=== PATIENT | female | born 1995 ===

== ENCOUNTER 2023-03-08 14:39 | Outpatient (REF) | payer OTHER, SELFPAY ==
[2023-03-08 16:45] LABS: Hematocrit 41.2 % (37.0-47.0); Hemoglobin 13.8 g/dl (12.0-16.0); Mean Corpuscular HGB Conc 33.5 g/dl (31.0-35.0); Mean Corpuscular Hemoglobin 28.8 pg (27.0-33.0); Mean Corpuscular Volume 85.8 fL (80.0-98.0); Mean Platelet Volume 11.1 fL (9.4-12.3); Platelet Count 358 X10*3/uL (160-400); Red Cell Distribution Width 11.5 % (11.0-16.0); White Blood Count 5.8 X10*3/uL (4.8-10.8)
[2023-03-08 17:31] LABS: Alanine Aminotransferase 14 U/L (0-31); Albumin Level 4.6 g/dL (3.5-5.0); Alkaline Phosphatase 45 U/L (39-117); Aspartate Amino Transferase 15 U/L (5-31); Bilirubin Direct 0.5 mg/dL (0.0-0.5); Bilirubin Total 1.2 mg/dL (0.0-1.0); Lipase 18 U/L (8-78); Total Protein 7.5 g/dL (6.5-8.0)
[2023-03-08 17:34] LABS: TSH reflex Free T4 1.35 uIU/mL (0.32-4.0)
== END 2023-03-08 14:40 | disposition home or self-care (01) ==
LOC: HO.LAB 14:39
PROVIDERS: Visit Provider Nurse Practitioner Family
DX: R10.9 Unspecified abdominal pain (principal); K21.9 Gastro-esophageal reflux disease without esophagitis; K59.00 Constipation, unspecified; K62.5 Hemorrhage of anus and rectum; K59.04 Chronic idiopathic constipation; K58.2 Mixed irritable bowel syndrome; K52.9 Noninfective gastroenteritis and colitis, unspecified; R14.0 Abdominal distension (gaseous)
CPT/HCPCS: 36415; 80076; 83690; 84443; 85027

== ENCOUNTER 2023-03-08 14:40 | Outpatient (AMB) | payer OTHER, SELFPAY ==
--- NOTE | 2023-03-08 14:43 | A.OFFVIS_ITS ---
Intake Vital Signs 03/08/23 14:45 Height 5 ft 1 in Weight 172 lb 6.424 oz BMI 32.6 BP 105/71 Blood Pressure Location Lt brachial Position Sitting Pulse 75 Intake Visit Reasons: Abdominal Pains, Rectal Bleeding Intake Note: Geovanna presents in office as a new.patient for abdominal pain , rectal bleeding. PT CC: pt reports having abdominal pain , rectal bleeding , bloating , constipation /diarrhea , heartburn , nausea, loss of appetite pt denies any other GI issues Marketing Intern Required: No Accompanied by: Self / Same As Patient Allergies No Known Allergies Allergy (Verified 03/08/23 14:45) HPI Abdominal Pains, Rectal Bleeding HPI Details 27-year-old female with past medical his tory of anxiety and depression is here today for initial consultation. Patient was sent to us by her PCP. Patient reported having occasional blood in the stool when wiping after bowel movement. Patient denies actual hematochezia or melena. Denies unintentional weight loss or ribbon like stools. Patient had few episodes back in November. Her blood work was normal. Normal H&H. Patient had abdominal CT scan that showed no colitis, diverticulitis or diverticulosis. Uterine fibroids and ovarian cysts noted. Patient reports to have postprandial loose stools then constipation for few days. Patient reports that her bowels are irregular. Patient also reports dyspepsia postprandially no matter what she eats. Patient feels discouraged and does not have much appetite because of that. Patient denies any nausea or vomiting. Reports dyspepsia without dysphagia or odynophagia. Patient reports postprandial abdominal bloating PFSH Surgical History (Updated 03/08/23 @ 14:50 by Isauro Mariee) Hx of removal of ovary Hx of ovarian cyst Family History (Updated 03/08/23 @ 14:48 by Isauro Mariee) Mother Cervical cancer Diabetes Father HTN (hypertension) Heart disease Stroke Social History (Updated 03/08/23 @ 14:47 by Isauro Mariee) Household Members: Other Alcohol intake: never Patient Tobacco Use Status: Never used Tobacco Review of Systems Const Denies weight gain and Denies weight loss ENT Reports no additional complaints, Denies dysphagia and Denies odynophagia Card Reports no additional complaints Resp Reports no additional complaints GI Reports abdominal pain, Denies belching, Denies melena, Reports bloating, Reports hematochezia (Occasional), Denies change in bowel habits, Reports constipation, Denies dysphagia, Denies excessive flatus, Reports dyspepsia, Reports heartburn, Denies diarrhea, Reports loose stools, Denies nausea, Denies odynophagia and Denies vomiting Reports no additional complaints Musc Reports no additional complaints Neuro Reports no additional complaints Psych Reports no additional complaints Endo Reports no additional complaints Physical Exam Vital Signs: Last Vital Signs Pulse 75 03/08/23 14:45 BP 105/71 03/08/23 14:45 BMI result Body Mass Index 32.6 Const General: healthy appearing, no acute distress and well developed Nutritional Appearance: obese Orientation/consciousness: patient oriented x3 HEENT Head: Yes normal to inspection, Yes normocephalic and Yes atraumatic Face and sinus: Yes normal facial exam Mouth: Normal oral and palatal mucosa present Throat: Yes posterior oropharynx normal, Yes tonsils normal and Yes uvula midline Eyes General: appearance normal, both eyes and all related structures Neck Neck: Yes normal visual inspection, Yes full ROM and Yes trachea midline Thyroid: Thyroid normal Resp Effort & Inspection: normal respiratory effort, able to speak in complete sentences, no tracheal deviation and symmetric chest movement Auscultation: clear to auscultation bilaterally Cardio Rate: regular rate Heart sounds: S1 normal heart sound present and S2 normal heart sound present GI Inspection: Yes normal to inspection, No distended and Yes obesity Palpation (GI): Soft to palpation, not firm, nontender and No hepatosplenomegaly present Auscultation: normal bowel sounds General: Yes no CVA tenderness Back/Spine/Pelvis Back: no CVA tenderness Skin General skin exam: elasticity normal, turgor normal and dry skin Neuro General: patient oriented x3 Psych Appearance: grossly normal Mental Status: mental status grossly normal Speech and movement: Normal speech and movement present Assessment & Plan Assessment & Plan (1) GERD (gastroesophageal reflux disease): Code(s): K21.9 - Gastro-esophageal reflux disease without esophagitis Qualifiers: Esophagitis presence: esophagitis presence not specified Qualified Code(s): K21.9 - Gastro-esophageal reflux disease without esophagitis (2) Rectal bleed: Code(s): K62.5 - Hemorrhage of anus and rectum (3) Chronic idiopathic constipation: Code(s): K59.04 - Chronic idiopathic constipation (4) IBS (irritable bowel syndrome): Code(s): K58.9 - Irritable bowel syndrome without diarrhea Qualifiers: Irritable bowel syndrome type: with both diarrhea and constipation Qualified Code(s): K58.2 - Mixed irritable bowel syndrome (5) Postprandial diarrhea: Code(s): K52.9 - Noninfective gastroenteritis and colitis, unspecified (6) Postprandial abdominal bloating: Code(s): R14.0 - Abdominal distension (gaseous) Plan Patient reports few episodes of rectal bleed. Patient describes seeing blood after bowel movement when wiping and sometimes in her stool. Normal H&H back in November. Will repeat CBC today. Patient is constipated will have her start taking senna. Patient however does report postprandial loose stools will have her start taking Citrucel to help her bulk stools. Will check thyroid study. Will check H pylori and will treat empirically if positive. Patient will be started on pantoprazole every morning half an hour before breakfast. Patient encouraged to avoid dietary triggers and late night snacking. Staying upright for minimum 3 hours after meals discussed with patient. Patient will follow-up in our office in 6 weeks, sooner on as needed basis. If patient continues with symptoms will send her for upper endoscopy. If patient will continue to have blood in her stools and abdominal discomfort will send her for colonoscopy. Patient is agreeable to this plan and verbalizes understanding of instructions. She was given the opportunity to ask questions and all questions answered. Thank you for allowing me to participate in her care Orders: Orders Lipase 03/08/23 R10.9 - Unspecified abdominal pain Complete Blood Count no Diff 03/08/23 K21.9 - Gastro-esophageal reflux disease without esophagitis TSH reflex Free T4 03/08/23 K59.00 - Constipation, unspecified Liver Panel 03/08/23 R10.9 - Unspecified abdominal pain H Pylori Breath Test 03/08/23 Medications: New methylcellulose (laxative) (Citrucel) 500 mg PO DAILY 30 tabs 2RF K59.00 - Constipation, unspecified sennosides (Natural Senna Laxative) 17.2 mg (2 x 8.6 mg) PO BEDTIME 180 tabs 3RF constipation K59.00 - Constipation, unspecified pantoprazole take one tablet half an hour before breakfast 40 mg PO DAILY 30 tabs 2RF K21.9 - Gastro-esophageal reflux disease without esophagitis Coding Level of Care Code New Pt Level 4 (96420) Diagnoses Gastroesophageal reflux disease, unspecified whether esophagitis present K21.9 Esophagitis presence: esophagitis presence not specified Rectal bleed K62.5 Chronic idiopathic constipation K59.04 Irritable bowel syndrome with both constipation and diarrhea K58.2 Irritable bowel syndrome type: with both diarrhea and constipation Postprandial diarrhea K52.9 Postprandial abdominal bloating R14.0 Time Spent (min) 45 Comment 30 minutes spent with patient and additional 15 minutes spent reviewing her records
[2023-03-08 14:45] VITALS: BP 105/71; PULSE 75; BMI 32.6
== END 2023-03-08 15:27 | disposition home or self-care (01) ==
PROVIDERS: Visit Provider Nurse Practitioner Family
DX: K21.9 Gastro-esophageal reflux disease without esophagitis (principal); K62.5 Hemorrhage of anus and rectum; K58.2 Mixed irritable bowel syndrome; R14.0 Abdominal distension (gaseous)
CPT/HCPCS: 99204

== ENCOUNTER 2023-03-08 15:49 | Outpatient (REF) | payer OTHER, SELFPAY ==
[2023-03-11 14:24] LABS: H Pylori Breath Test Negative (Negative)
== END 2023-03-08 15:50 | disposition home or self-care (01) ==
LOC: HO.LNP 15:49
PROVIDERS: Visit Provider Nurse Practitioner Family
DX: K59.00 Constipation, unspecified (principal); R10.9 Unspecified abdominal pain; K21.9 Gastro-esophageal reflux disease without esophagitis; Z11.0 Encounter for screening for intestinal infectious diseases
CPT/HCPCS: 83013

== ENCOUNTER 2023-04-22 15:06 | Outpatient (AMB) | payer OTHER, SELFPAY ==
--- NOTE | 2023-04-22 15:08 | A.OFFVIS_ITS ---
Intake Vital Signs 04/22/23 15:12 Height 5 ft 1 in Weight 167 lb 8.821 oz BMI 31.7 BP 121/72 Blood Pressure Location Lt brachial Position Sitting Pulse 83 Intake Visit Reasons: 6 week follow up Intake Note: Geovanna presents in the office as a 6 week follow up. CC: She states that she is still having issues with her stomach and she does not know the results - she was unable to make a log in into the portal. Allergies No Known Allergies Allergy (Verified 04/22/23 15:14) HPI 6 week follow up HPI Details LAST VISIT: GERD (gastroesophageal reflux disease) Rectal bleed Chronic idiopathic constipation IBS (irritable bowel syndrome) Postprandial diarrhea Postprandial abdominal bloating Plan Patient reports few episodes of rectal bleed. Patient describes seeing blood after bowel movement when wiping and sometimes in her stool. Normal H&H back in November. Will repeat CBC today. Patient is constipated will have her start taking senna. Patient however does report postprandial loose stools will have her start taking Citrucel to help her bulk stools. Will check thyroid study. Will check H pylori and will treat empirically if positive. Patient will be started on pantoprazole every morning half an hour before breakfast. Patient encouraged to avoid dietary triggers and late night snacking. Staying upright for minimum 3 hours after meals discussed with patient. Patient will follow-up in our office in 6 weeks, sooner on as needed basis. If patient continues with symptoms will send her for upper endoscopy. If patient will continue to have blood in her stools and abdominal discomfort will send her for colonoscopy. Patient is agreeable to this plan and verbalizes understanding of instructions. She was given the opportunity to ask questions and all questions answered. ? Thank you for allowing me to participate in her care Orders Orders Lipase 03/08/23 R10.9 Complete Blood Count no Diff 03/08/23 K21.9 TSH reflex Free T4 03/08/23 K59.00 Liver Panel 03/08/23 R10.9 H Pylori Breath Test 03/08/23 Medications New methylcellulose (laxative) (Citrucel) 500 mg PO DAILY 30 tabs 2RF K59.00 sennosides (Natural Senna Laxative) 17.2 mg (2 x 8.6 mg) PO BEDTIME 180 tabs 3RF constipation K59.00 pantoprazole take one tablet half an hour before breakfast 40 mg PO DAILY 30 tabs 2RF K21.9 TODAY'S VISIT Patient is here today for follow-up and to discuss lab results. Patient reports that she has been feeling little better, however she still has postprandial loose stools, does not feel like she empties completely. Take Citrucel in the morning and senna night time. Patient reports that pantoprazole has been working and she has decrease in acid reflux symptoms. However reports occasional dyspepsia without dysphagia or odynophagia. Patient had normal lab results. Patient is unable to get in to her portal to view her labs. Will have staff help her get in to her account. Patient denies any nausea or vomiting. Reports postprandial abdominal bloating. Denies melena, hematochezia, unintentional weight loss or ribbon like stools. PFSH Surgical History Hx of removal of ovary Hx of ovarian cyst Family History Mother Cervical cancer Diabetes Father HTN (hypertension) Heart disease Stroke Household Members: Other Alcohol intake: never Patient Tobacco Use Status: Never used Tobacco Review of Systems Const Denies weight gain and Denies weight loss ENT Reports no additional complaints, Denies dysphagia and Denies odynophagia Card Reports no additional complaints Resp Reports no additional complaints GI Denies abdominal pain, Denies belching, Denies melena, Reports bloating, Denies change in bowel habits, Reports constipation, Denies dysphagia, Denies excessive flatus, Denies dyspepsia, Reports heartburn (Occasional), Denies diarrhea, Denies loose stools, Denies nausea, Denies odynophagia and Denies vomiting Reports no additional complaints Musc Reports no additional complaints Neuro Reports no additional complaints Psych Reports no additional complaints Endo Reports no additional complaints Physical Exam Vital Signs: Last Vital Signs Pulse 83 04/22/23 15:12 BP 121/72 04/22/23 15:12 BMI result Body Mass Index 31.7 Const General: healthy appearing, no acute distress and well developed Nutritional Appearance: obese Orientation/consciousness: patient oriented x3 HEENT Head: Yes normal to inspection, Yes normocephalic and Yes atraumatic Face and sinus: Yes normal facial exam Mouth: Normal oral and palatal mucosa present Throat: Yes posterior oropharynx normal, Yes tonsils normal and Yes uvula midline Eyes General: appearance normal, both eyes and all related structures Neck Neck: Yes normal visual inspection, Yes full ROM and Yes trachea midline Thyroid: Thyroid normal Resp Effort & Inspection: normal respiratory effort, able to speak in complete sentences, no tracheal deviation and symmetric chest movement Auscultation: clear to auscultation bilaterally Cardio Rate: regular rate Heart sounds: S1 normal heart sound present and S2 normal heart sound present GI Inspection: Yes normal to inspection, No distended and Yes obesity Palpation (GI): Soft to palpation, not firm, nontender and No hepatosplenomegaly present Auscultation: normal bowel sounds General: Yes no CVA tenderness Back/Spine/Pelvis Back: no CVA tenderness Skin General skin exam: elasticity normal, turgor normal and dry skin Neuro General: patient oriented x3 Psych Appearance: grossly normal Mental Status: mental status grossly normal Affect: normal affect Results Reviewed Results Reviewed: Laboratory Tests 03/08/23 03/08/23 15:41 16:01 Hgb 13.8 Hct 41.2 MCV 85.8 Total Bilirubin 1.2 H Direct Bilirubin 0.5 AST 15 ALT 14 Lipase 18 TSH 1.35 H. pylori Breath Test Negative Assessment & Plan Assessment & Plan (1) GERD (gastroesophageal reflux disease): Code(s): K21.9 - Gastro-esophageal reflux disease without esophagitis Qualifiers: Esophagitis presence: esophagitis presence not specified Qualified Code(s): K21.9 - Gastro-esophageal reflux disease without esophagitis (2) Rectal bleed: Code(s): K62.5 - Hemorrhage of anus and rectum (3) Chronic idiopathic constipation: Code(s): K59.04 - Chronic idiopathic constipation (4) IBS (irritable bowel syndrome): Code(s): K58.9 - Irritable bowel syndrome without diarrhea Qualifiers: Irritable bowel syndrome type: with constipation Qualified Code(s): K58.1 - Irritable bowel syndrome with constipation (5) Postprandial diarrhea: Code(s): K52.9 - Noninfective gastroenteritis and colitis, unspecified (6) Postprandial abdominal bloating: Code(s): R14.0 - Abdominal distension (gaseous) Plan Patient can continue taking Citrucel daily. She will start taking Dulcolax tablets in the evening. Patient was encouraged to increase fluid intake and activity to promote better bowel motility. Discussed with patient avoiding dietary triggers and late night snacking. Staying upright for minimum 3 hours after meals discussed with patient. Low FODMAP diet discussed with patient. Continue pantoprazole daily. All lab work discussed with patient today. Normal values. Patient will be sent for upper endoscopy to further evaluate for eso phagitis, gastritis, with night this, H pylori. H pylori breath test was negative. Patient is agreeable to this plan and verbalizes understanding of instructions. She was given the opportunity to ask questions and all questions answered. Thank you for allowing me to participate in her care Medications: New bisacodyl (Dulcolax (bisacodyl)) 10 mg (2 x 5 mg) PO BEDTIME 180 tabs 4RF Discontinued sennosides Discontinued Reason: Doctor's Order 17.2 mg (2 x 8.6 mg) PO BEDTIME 180 tabs 3RF constipation K59.00 - Constipation, unspecified Coding Level of Care Code Est Pt Level 4 (46095) Diagnoses Gastroesophageal reflux disease, unspecified whether esophagitis present K21.9 Esophagitis presence: esophagitis presence not specified Rectal bleed K62.5 Chronic idiopathic constipation K59.04 Irritable bowel syndrome with constipation K58.1 Irritable bowel syndrome type: with constipation Postprandial diarrhea K52.9 Postprandial abdominal bloating R14.0 Time Spent (min) 35 Comment 25 minutes spent with patient and additional 10 minutes spent reviewing her records
[2023-04-22 15:12] VITALS: BP 121/72; PULSE 83; BMI 31.7
== END 2023-04-22 15:49 | disposition home or self-care (01) ==
PROVIDERS: Visit Provider Nurse Practitioner Family
DX: K21.9 Gastro-esophageal reflux disease without esophagitis (principal); K62.5 Hemorrhage of anus and rectum; K58.2 Mixed irritable bowel syndrome; R14.0 Abdominal distension (gaseous)
CPT/HCPCS: 99214

== ENCOUNTER → 2023-04-22 15:06 | Outpatient (BNVA) | payer OTHER, SELFPAY | PROVIDERS: Visit Provider Nurse Practitioner Family | DX: K21.9 Gastro-esophageal reflux disease without esophagitis (principal); K62.5 Hemorrhage of anus and rectum; K59.04 Chronic idiopathic constipation; K58.1 Irritable bowel syndrome with constipation; R14.0 Abdominal distension (gaseous); Z79.899 Other long term (current) drug therapy | CPT/HCPCS: 99212 ==

== ENCOUNTER 2023-05-20 13:01 | Outpatient (AMB) | payer OTHER, SELFPAY ==
[2023-05-20 13:05] VITALS: BP 114/60; PULSE 95; O2SAT 91; BMI 32.4
--- NOTE | 2023-05-20 13:05 | MHC.PC.OV ---
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 Accompanied by: Self / Same As Patient Allergies No Known Allergies Allergy (Verified 05/20/23 13:22) Medication List - Last Reconciled 05/20/23 by ARTHUR Ayala albuterol sulfate 90 mcg/actuation (Ventolin HFA) inhalation bisacodyl (Dulcolax (bisacodyl)) 10 mg (2 x 5 mg) PO BEDTIME clonidine HCl 0.1 mg PO BID fluoxetine 60 mg PO QAM lorazepam 0.5 mg PO TID PRN methylcellulose (laxative) (Citrucel) 500 mg PO DAILY mirtazapine 30 mg PO BEDTIME pantoprazole 40 mg PO DAILY Tobacco use date assessed: 05/20/23 Dental Screening Dental Screen Date: 05/20/23 Did you have a dental visit in the last 12 months?: Yes Did you have a dental problem in the last 6 months where you did not have access to dental care?: No Was dental information given to patient?: Patient has dentist HPI HPI Comments History of Present Illness Details 27-year-old female past medical history significant for chronic idiopathic constipation, IBS, GERD, anxiety, depression. Patient reports had upper respiratory infection a few months ago and was started on albuterol for possible asthma. Patient states was seen and emergency room and was told she had a pleurisy. Patient reports she continues to have ongoing shortness of breath and occasional wheezing. Did she use her rescue inhaler multiple times per day. Denies any night awakenings due to shortness of breath and wheezing. Refill sent on albuterol. Will proceed with chest x-ray and PFTs to further evaluate. O2 saturation recheck during appointment 100% on room air. Patient currently following with psychiatrist Melissa Echeverria. Patient also reports she has ongoing all over muscle pains throughout whole body labs ordered to further evaluate for possible autoimmune problem. 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 [facility] Medical History (Updated 05/20/23 @ 13:36 by ARTHUR Ayala) Myalgia Surgical History Hx of removal of ovary Hx of ovarian cyst Family History Mother Cervical cancer Diabetes Father HTN (hypertension) Heart disease Stroke Social History Household Members: Other Housing: Apartment Alcohol intake: never Patient Tobacco Use Status: Never used Tobacco e-Cigarette/Vaping Use: Never Used service: No Current occupational status: disabled Cognitive needs: No Hearing needs: No Vision needs: No Questionnaire PHQ-9 Over the last 2 weeks, how often have you been bothered by any of the following problems? 1. Little interest or pleasure in doing things: nearly every day 2. Feeling down, depressed, or hopeless: more than half the days 3. Trouble falling or staying asleep, or sleeping too much: nearly every day 4. Feeling tired or having little energy: nearly every day 5. Poor appetite or overeating: nearly every day 6. Feeling bad about yourself - or that you are a failure or have let yourself or your family down: several days 7. Trouble concentrating on things, such as reading the newspaper or watching television: more than half the days 8. Moving or speaking so slowly that other people could have noticed. Or the opposite - being so fidgety or restless that you have been moving around a lot more than usual: nearly every day 9. Thoughts that you would be better off or of hurting yourself in some way: not at all Total score: 20 Depression Screening Interpretation: Positive Depression Screening Follow-up: In treatment Depression Screening Done: Yes 60869 - PHQ-9 Billing: Yes Source: Developed by Drs. Edgard Cote, Jacklyn Garay, Chin Sims and colleagues, with an educational josh from [employer]. Thrive Questionnaire Date Thrive assessed: 05/20/23 I am a: Patient What is your living situation today?: I have a steady place to live Within the past 12 months, did the food you bought not last and you didn't have the money to get more?: Never true Within the past 12 months, did you worry whether your food would run out before you got money to buy more?: Never true Do you have trouble paying for medicines?: No Do you have trouble getting transportation to medical appointments?: No Do you have trouble paying your heating and electricity bill?: No Do you have trouble taking care of your child, family member or friend?: No Do you have trouble with day-to-day activities such as bathing, preparing meals, shopping, managing finances, etc.?: No Are you currently unemployed and looking for a job?: No Are you interested in more education?: No Please select the resources that you would like help with: None Currently or been in a relationship where the following occur: no concerns reported AUDIT C Alcohol Use Questionnaire (AUDIT-C) 1. How often do you have a drink containing alcohol?: Never 3. How often do you have six or more drinks on one occasion?: Never Total Score: 0 RACH-7 AMB Questionnaire RACH-7 Date RACH - 7 assessed: 05/20/23 Feeling nervous, anxious, or on edge: 3 = Nearly every day Not being able to stop or control worryin = Nearly every day Worrying too much about different things: 2 = More than half the days Trouble relaxin = More than half the days Being so restless that it is hard to sit still: 1 = Several days Becoming easily annoyed or irritable: 2 = More than half the days Feeling afraid as if something awful might happen: 3 = Nearly every day Total RACH-7 score (0-4 normal; 5-9 mild; 10-14 moderate; 15-21 severe): 16 Source: Developed by Drs. Edgard Cote, Jacklyn Garay, Chin Sims and colleagues, with an educational josh from [employer]. RACH-7 Assessment Billing RACH-7 Assessment Tool: RACH-7 Assessment 80216 Review of Systems Const Denies chills, Denies fatigue, Denies fever(s) and Denies poor appetite Eyes Denies no additional complaints ENT Reports Normal hearing present Card Denies chest pain, Denies syncope, Denies rapid heart rate and Denies dyspnea Resp Denies cough and Denies dyspnea GI Denies change in stool character, Denies constipation, Denies diarrhea, Denies nausea and Denies vomiting Denies urinary frequency, Denies dysuria and Denies urinary urgency Neuro Reports Normal hearing present, Denies confusion and Denies syncope Psych Denies confusion Endo Denies fatigue Physical exam (Primary Care) Vital Signs: Last Vital Signs Pulse 95 05/20/23 13:05 BP 114/60 05/20/23 13:05 Pulse Ox 91 L 05/20/23 13:05 Oxygen Delivery Method Room Air 05/20/23 13:05 BMI result Body Mass Index 32.4 Tobacco/Smoking Status: Tobacco use Status Tobacco use date assessed 05/20/23 05/20/23 13:16 Patient Tobacco Use Status Never used Tobacco 05/20/23 13:16 e-Cigarette/Vaping Use Never Used 05/20/23 13:16 PHQ-9: PHQ-9 Score PHQ-9: Total score 20 05/21/23 09:54 Depression Screening Interpretation: Positive Depression Screening Follow-up: In treatment Thrive Assessment: Date of Thrive Assessment Date Thrive assessed 05/20/23 05/20/23 13:16 Currently or been in a relationship where the following occur: no concerns reported Const General: No confusion Orientation/consciousness: No confusion HENMT Head: Yes normocephalic and Yes atraumatic Eyes Conjunctivae: conjunctivae normal Chest Chest palpation & inspection: normal inspection of the chest Resp Effort & Inspection: normal respiratory effort Auscultation: clear to auscultation bilaterally, no crackles, no rhonchi and no wheezes Cardio Rate: regular rate Rhythm: regular rhythm Heart sounds: S1 normal heart sound present and S2 normal heart sound present Peripheral pulses: dorsalis pedis present GI Inspection: Yes normal to inspection General: Yes no CVA tenderness Back/Spine/Pelvis Back: no CVA tenderness Neuro General: No confusion Cranial nerves: Yes Normal hearing present Extrem General: No edema Assessment and Plan Assessment & Plan (1) Myalgia: Code(s): M79.10 - Myalgia, unspecified site Plan: CRP, ESR, JOY and rheumatoid factor ordered given patient experiencing ongoing all over muscle pains. If unremarkable will refer to Rheumatology for further evaluation. (2) Shortness of breath: Code(s): R06.02 - Shortness of breath Plan: Chest x-ray ordered. Use albuterol as needed for shortness of breath and wheezing. (3) Pleurisy: Code(s): R09.1 - Pleurisy Plan: Chest x-ray ordered. Orders: Orders Comprehensive Met. Panel 05/20/23 Z13.1 - Encounter for screening for diabetes mellitus Lipid Panel 05/20/23 Z13.220 - Encounter for screening for lipoid disorders Vitamin D 25-OH Total 05/20/23 Z13.21 - Encounter for screening for nutritional disorder Erythrocyte Sedimentation Rate 05/20/23 M79.10 - Myalgia, unspecified site C Reactive Protein 05/20/23 M79.10 - Myalgia, unspecified site PFT pulmonary function test 05/20/23 J45.909 - Unspecified asthma, uncomplicated Complete Blood Count Auto Diff 05/20/23 Z13.0 - Encounter for screening for diseases of the blood and blood-forming organs and certain disorders involving the immune mechanism TSH reflex Free T4 05/20/23 Z13.29 - Encounter for screening for other suspected endocrine disorder JOY Reflex Titer and Pattern 05/20/23 M79.10 - Myalgia, unspecified site Rheumatoid Factor 05/20/23 J45.909 - Unspecified asthma, uncomplicated CT NG by PCR 05/20/23 Z11.8 - Encounter for screening for other infectious and parasitic diseases XR chest 2V 05/20/23 R06.02 - Shortness of breath, R09.1 - Pleurisy Referrals HOUSE PLAYER Referral Z12.4 - Encounter for screening for malignant neoplasm of cervix Medications: New prednisone 40 mg (2 x 20 mg) PO DAILY 10 tabs 0RF J45.909 - Unspecified asthma, uncomplicated Changed From albuterol sulfate 90 mcg/actuation (Ventolin HFA) inhalation J45.909 - Unspecified asthma, uncomplicated To albuterol sulfate 90 mcg/actuation (Ventolin HFA) 2 puffs inhalation Q4-6H 6.7 grams 0RF J45.909 - Unspecified asthma, uncomplicated Coding Level of Care Code New Pt Level 3 (43082) Diagnoses Myalgia M79.10 Shortness of breath R06.02 Pleurisy R09.1 Additional Codes RACH-7 Assessment Billing - RACH-7 Assessment Tool: RACH-7 Assessment [id number] ([id number])
== END 2023-05-20 13:46 | disposition home or self-care (01) ==
PROVIDERS: Visit Provider Nurse Practitioner Family
DX: M79.10 Myalgia, unspecified site (principal); R06.02 Shortness of breath; R09.1 Pleurisy
CPT/HCPCS: 99203

== ENCOUNTER 2023-05-20 13:52 | Outpatient (REF) | payer OTHER, SELFPAY ==
--- NOTE | ~2023-05-20 | XR_ITS ---
EXAMINATION: XR CHEST CLINICAL INFORMATION: Shortness of breath. COMPARISON: None available. TECHNIQUE: 2 views of the chest were obtained. FINDINGS: Normal appearance of the cardiomediastinal silhouette. No focal airspace opacities, pleural effusion or pneumothorax. No pulmonary edema. No acute osseous findings. Visualized upper abdomen is within normal limits. XR/XR chest 2V IMPRESSION: No acute cardiopulmonary findings.
== END 2023-05-20 13:53 | disposition home or self-care (01) ==
LOC: HO.XRAY 13:52
PROVIDERS: PCP Nurse Practitioner Family; Visit Provider Nurse Practitioner Family
DX: R06.02 Shortness of breath (principal); R09.1 Pleurisy
CPT/HCPCS: 71046

== ENCOUNTER 2023-12-22 10:08 | Outpatient (AMB) | payer OTHER, SELFPAY ==
--- NOTE | 2023-12-22 10:31 | MHC.PC.OV ---
Vital Signs 12/22/23 10:34 Height 5 ft 1 in Weight 168 lb 2 oz BMI 31.8 BP 130/80 Blood Pressure Location Lt brachial Position Sitting Pulse 72 Pulse Source Pulse Oximeter Pulse Oximetry (%) 99 Oxygen Delivery Method Room Air Intake Visit Reasons: PE Intake Note: Patient is here today for a physical and TOM from [facility]. Requesting for Fibromyalgia test and Rheumatology referral. Per pt she had a fall months ago, sprain her right ankle but it has not healed yet. Complaint of low blood sugar at times. Dog Walker Required: No Piece Dye Worker: Present Accompanied by: Sister Allergies No Known Allergies Allergy (Verified 12/22/23 10:34) Tobacco use date assessed: 12/22/23 Dental Screening Dental Screen Date: 12/22/23 Did you have a dental visit in the last 12 months?: Yes Did you have a dental problem in the last 6 months where you did not have access to dental care?: No Was dental information given to patient?: Patient has dentist HPI PE HPI Details 28-year-old female presents to the office for an annual physical. She is accompanied by her sister. I will be assuming her care as her current provider has left the practice. Patient reports that she has nonspecific muscle aches and would like to see a behavioral health care manager. She believes she has fibromyalgia. She has history of depression for which she is disabled and is taking medications. Reports nonspecific pain in her various joints. Occasional morning stiffness. REPLACED BY [facility] Medical History Anxiety Depression IBS (irritable bowel syndrome) Pleurisy Asthma Myalgia Surgical History Hx of removal of ovary Hx of ovarian cyst Family History Mother Cervical cancer Diabetes Father HTN (hypertension) Heart disease Stroke Social History Household Members: Other Housing: Apartment Alcohol intake: never Patient Tobacco Use Status: Never used Tobacco e-Cigarette/Vaping Use: Never Used Second Hand Smoke Exposure: No service: No Current occupational status: disabled Cognitive needs: No Hearing needs: No Vision needs: No Questionnaire PHQ-9 Over the last 2 weeks, how often have you been bothered by any of the following problems? 1. Little interest or pleasure in doing things: several days (has therapy) 2. Feeling down, depressed, or hopeless: several days 3. Trouble falling or staying asleep, or sleeping too much: nearly every day 4. Feeling tired or having little energy: nearly every day 5. Poor appetite or overeating: several days 6. Feeling bad about yourself - or that you are a failure or have let yourself or your family down: more than half the days 7. Trouble concentrating on things, such as reading the newspaper or watching television: nearly every day 8. Moving or speaking so slowly that other people could have noticed. Or the opposite - being so fidgety or restless that you have been moving around a lot more than usual: several days 9. Thoughts that you would be better off or of hurting yourself in some way: not at all Total score: 15 Depression Screening Interpretation: Positive Depression Screening Follow-up: Existing condition and In treatment Depression Screening Done: Yes Source: Developed by Drs. Edgard Cote, Jacklyn Garay, Chin Sims and colleagues, with an educational josh from [employer]. Thrive Questionnaire Date Thrive assessed: 12/22/23 I am a: Patient What is your living situation today?: I have a steady place to live Within the past 12 months, did the food you bought not last and you didn't have the money to get more?: Never true Within the past 12 months, did you worry whether your food would run out before you got money to buy more?: Never true Do you have trouble paying for medicines?: No Do you have trouble getting transportation to medical appointments?: No Do you have trouble paying your heating and electricity bill?: No Do you have trouble taking care of your child, family member or friend?: No Do you have trouble with day-to-day activities such as bathing, preparing meals, shopping, managing finances, etc.?: No Are you currently unemployed and looking for a job?: No Are you interested in more education?: No Currently or been in a relationship where the following occur: No concerns reported THRIVE Score: 0 AUDIT C Alcohol Use Questionnaire (AUDIT-C) 1. How often do you have a drink containing alcohol?: Never Total Score: 0 RACH-7 AMB Questionnaire RACH-7 Date RACH - 7 assessed: 12/22/23 Feeling nervous, anxious, or on edge: 3 = Nearly every day (Has Therapy ) Not being able to stop or control worryin = Several days Worrying too much about different things: 1 = Several days Trouble relaxin = More than half the days Being so restless that it is hard to sit still: 2 = More than half the days Becoming easily annoyed or irritable: 1 = Several days Feeling afraid as if something awful might happen: 3 = Nearly every day Total RACH-7 score (0-4 normal; 5-9 mild; 10-14 moderate; 15-21 severe): 13 Source: Developed by Drs. Edgard Cote, Jacklyn Garay, Chin Sims and colleagues, with an educational josh from [employer]. Physical exam (Primary Care) Vital Signs: Last Vital Signs Pulse 72 12/22/23 10:34 BP 130/80 12/22/23 10:34 Pulse Ox 99 12/22/23 10:34 Oxygen Delivery Method Room Air 12/22/23 10:34 BMI result Body Mass Index 31.8 BMI Assessment/Plan discussion: High (1 lb per week weight loss suggested.) BMI High, discussed plan: lifestyle, weight reduction and dietary Tobacco/Smoking Status: Tobacco use Status Tobacco use date assessed 12/22/23 12/22/23 10:38 Patient Tobacco Use Status Never used Tobacco 12/22/23 10:38 e-Cigarette/Vaping Use Never Used 12/22/23 10:38 PHQ-9: PHQ-9 Score PHQ-9: Total score 15 12/22/23 10:47 Depression Screening Interpretation: Positive Depression Screening Follow-up: Existing condition and In treatment Thrive Assessment: Date of Thrive Assessment Date Thrive assessed 12/22/23 12/22/23 10:38 Currently or been in a relationship where the following occur: No concerns reported Const General: cooperative and healthy appearing Nutritional Appearance: well nourished Orientation/consciousness: patient oriented x3 Limitations: no limitations HENMT Head: Yes normal to inspection Eyes General: appearance normal, both eyes and all related structures Neck Neck: Yes normal visual inspection Chest Chest palpation & inspection: normal palpation of entire chest wall Resp Effort & Inspection: normal respiratory effort Neuro General: patient oriented x3 Assessment and Plan Assessment & Plan (1) Depression: Code(s): F32.A - Depression, unspecified Plan: Patient sees a psychiatrist and a therapist. She has on a regimen of medications. Continue current medications. (2) Anxiety: Code(s): F41.9 - Anxiety disorder, unspecified Plan: As above. (3) Irritable bowel syndrome: Code(s): K58.9 - Irritable bowel syndrome without diarrhea Plan: Patient is using MiraLax and other stool softeners for constipation. This regimen can be continued. (4) Myalgia: Code(s): M79.10 - Myalgia, unspecified site Plan: Rheumatology appointment has been requested. Blood work has been ordered. (5) Annual physical exam: Code(s): Z00.00 - Encounter for general adult medical examination without abnormal findings Orders: Orders Basic Metabolic Panel 12/22/23 F32.A - Depression, unspecified, F41.9 - Anxiety disorder, unspecified, K58.9 - Irritable bowel syndrome without diarrhea, M79.10 - Myalgia, unspecified site, Z11.3 - Encounter for screening for infections with a predominantly sexual mode of transmission Lipid Panel 12/22/23 F32.A - Depression, unspecified, F41.9 - Anxiety disorder, unspecified, K58.9 - Irritable bowel syndrome without diarrhea, M79.10 - Myalgia, unspecified site, Z11.3 - Encounter for screening for infections with a predominantly sexual mode of transmission Liver Panel 12/22/23 F32.A - Depression, unspecified, F41.9 - Anxiety disorder, unspecified, K58.9 - Irritable bowel syndrome without diarrhea, M79.10 - Myalgia, unspecified site, Z11.3 - Encounter for screening for infections with a predominantly sexual mode of transmission Thyroid Stimulating Hormone 12/22/23 F32.A - Depression, unspecified, F41.9 - Anxiety disorder, unspecified, K58.9 - Irritable bowel syndrome without diarrhea, M79.10 - Myalgia, unspecified site, Z11.3 - Encounter for screening for infections with a predominantly sexual mode of transmission HIV Ab/Ag 12/22/23 F32.A - Depression, unspecified, F41.9 - Anxiety disorder, unspecified, K58.9 - Irritable bowel syndrome without diarrhea, M79.10 - Myalgia, unspecified site, Z11.3 - Encounter for screening for infections with a predominantly sexual mode of transmission Syphilis Screen 12/22/23 F32.A - Depression, unspecified, F41.9 - Anxiety disorder, unspecified, K58.9 - Irritable bowel syndrome without diarrhea, M79.10 - Myalgia, unspecified site, Z11.3 - Encounter for screening for infections with a predominantly sexual mode of transmission Complete Blood Count no Diff 12/22/23 F32.A - Depression, unspecified, F41.9 - Anxiety disorder, unspecified, K58.9 - Irritable bowel syndrome without diarrhea, M79.10 - Myalgia, unspecified site, Z11.3 - Encounter for screening for infections with a predominantly sexual mode of transmission UA and rflx microscopic 12/22/23 F32.A - Depression, unspecified, F41.9 - Anxiety disorder, unspecified, K58.9 - Irritable bowel syndrome without diarrhea, M79.10 - Myalgia, unspecified site, Z11.3 - Encounter for screening for infections with a predominantly sexual mode of transmission CT NG by PCR 12/22/23 F32.A - Depression, unspecified, F41.9 - Anxiety disorder, unspecified, K58.9 - Irritable bowel syndrome without diarrhea, M79.10 - Myalgia, unspecified site, Z11.3 - Encounter for screening for infections with a predominantly sexual mode of transmission Erythrocyte Sedimentation Rate 12/22/23 F32.A - Depression, unspecified, F41.9 - Anxiety disorder, unspecified, K58.9 - Irritable bowel syndrome without diarrhea, M79.10 - Myalgia, unspecified site, Z11.3 - Encounter for screening for infections with a predominantly sexual mode of transmission Medications: Discontinued prednisone Discontinued Reason: Doctor's Order 40 mg (2 x 20 mg) PO DAILY 10 tabs 0RF J45.909 - Unspecified asthma, uncomplicated Coding Level of Care Code Est Pt Prev Care 18-39y(14346) Diagnoses Depression F32.A Anxiety F41.9 Irritable bowel syndrome K58.9 Myalgia M79.10 Annual physical exam Z00.00
[2023-12-22 10:34] VITALS: BP 130/80; PULSE 72; O2SAT 99; BMI 31.8
== END 2023-12-22 11:26 | disposition home or self-care (01) ==
PROVIDERS: PCP Nurse Practitioner Family; Visit Provider Internal Medicine
DX: F32.A Depression, unspecified (principal); F41.9 Anxiety disorder, unspecified; K58.9 Irritable bowel syndrome, unspecified; M79.10 Myalgia, unspecified site; Z00.00 Encounter for general adult medical examination without abnormal findings
CPT/HCPCS: 99395

== ENCOUNTER 2023-12-22 11:40 | Outpatient (REF) | payer OTHER, SELFPAY | END 2023-12-22 11:41 | disposition home or self-care (01) | LOC: HO.LAB 11:40 | PROVIDERS: PCP Internal Medicine; Visit Provider Internal Medicine | DX: Z13.89 Encounter for screening for other disorder (principal) ==

== ENCOUNTER 2023-12-27 14:21 | Outpatient (REF) | payer OTHER, SELFPAY ==
[2023-12-27 15:42] LABS: Hematocrit 37.1 % (37.0-47.0); Hemoglobin 12.6 g/dl (12.0-16.0); Mean Corpuscular Hemoglobin 29.2 pg (27.0-33.0); Mean Corpuscular Volume 85.9 fL (80.0-98.0); Mean Platelet Volume 11.2 fL (9.4-12.3); Platelet Count 289 X10*3/uL (160-400); Red Blood Count 4.32 X10*6/uL (4.20-5.50); Red Cell Distribution Width 11.9 % (11.0-16.0); White Blood Count 4.9 X10*3/uL (4.8-10.8)
[2023-12-27 16:00] LABS: Appearance Urine Clear; Color Urine Yellow; Glucose Urine UA Negative (Negative); Leukocyte Esterase Urine Moderate (2+) (Negative); Nitrite Urine Negative (Negative); PH 7.5 (5.0-9.0); Specific Gravity - Urine <= 1.005 (1.005-1.025); UMIC TRIGGER UA YES; Urine Blood Trace (Negative); Urine Ketones Negative (Negative); Urine Protein Negative (Neg-Trace)
[2023-12-27 16:14] LABS: Alanine Aminotransferase 13 U/L (0-31); Albumin Level 4.3 g/dL (3.5-5.0); Alkaline Phosphatase 46 U/L (39-117); Anion Gap 10 (12-20); Aspartate Amino Transferase 14 U/L (5-31); Bilirubin Direct 0.5 mg/dL (0.0-0.5); Bilirubin Total 1.6 mg/dL (0.0-1.0); Blood Urea Nitrogen 6 mg/dL (9-16); Calcium 9.8 mg/dL (8.4-10.2); Carbon Dioxide 26 mmol/L (22-29); Chloride 107 mmol/L (96-108); Cholesterol 125 mg/dL (<200); Estimated Glomerular Filt Rate > 60; Glucose Random 77 mg/dL (60-115); HDL Cholesterol 59 mg/dL (>40); LDL Cholesterol Calculated 56 mg/dL (<100); Potassium 3.8 mmol/L (3.3-5.1); Sodium 139 mmol/L (135-145); Total Protein 6.9 g/dL (6.5-8.0); Triglycerides 51 mg/dL (<150)
[2023-12-27 16:18] LABS: Bacteria Urine None Seen (None Seen); Hyaline Casts Urine 0-2 /LPF (0-2); RBC Urine 0-2 /HPF (0-2); WBC Urine 0-5 /HPF (0-5)
[2023-12-27 16:22] LABS: Thyroid Stimulating Hormone 1.51 uIU/mL (0.32-4.0)
[2023-12-27 16:25] LABS: Erythrocyte Sedimentation Rate 7 MM/HR (0-20)
[2023-12-28 08:44] LABS: HIV AB/AG Nonreactive (Nonreactive); HIV Num 1 0.05 S/CO (0.00-0.99)
[2023-12-28 08:47] LABS: Syphilis Screen Nonreactive (Nonreactive)
== END 2023-12-27 14:22 | disposition home or self-care (01) ==
LOC: HO.LAB 14:21
PROVIDERS: PCP Internal Medicine; Visit Provider Internal Medicine
DX: F32.A Depression, unspecified (principal); K58.9 Irritable bowel syndrome, unspecified; M79.10 Myalgia, unspecified site; F41.9 Anxiety disorder, unspecified; Z11.3 Encounter for screening for infections with a predominantly sexual mode of transmission
CPT/HCPCS: 36415; 80048; 80061; 80076; 81001; 81003; 84443; 85027; 85652; 86780; 87389

== ENCOUNTER 2024-01-05 10:43 | Outpatient (AMB) | payer OTHER, SELFPAY ==
--- NOTE | 2024-01-05 10:45 | A.OFFPC_ITS ---
Vital Signs 01/05/24 10:47 Height 5 ft 1 in Weight 167 lb 8 oz BMI 31.6 BP 110/70 Blood Pressure Location Rt brachial Position Sitting Pulse 75 Pulse Source Pulse Oximeter Pulse Oximetry (%) 99 Oxygen Delivery Method Room Air Intake Visit Reasons: LUNG PAIN/BACK Intake Note: Patient is here to follow up on Chest pain, Back pain, lot phemy. Requesting for referral to supervisor pole yard and Rheumatology (prefer [facility]). Car Sales Associate Required: No Scouring Machine Tender: Present Accompanied by: Sister Allergies No Known Allergies Allergy (Verified 01/05/24 11:40) Medication List - Last Reconciled 01/05/24 by Ventura Zuleta MD albuterol sulfate 90 mcg/actuation (Ventolin HFA) 2 puffs inhalation Q4-6H azithromycin (Zithromax) take 500 mg today (day 1), then 250 mg for 4 days (days 2-5) PO bisacodyl (Dulcolax (bisacodyl)) 10 mg (2 x 5 mg) PO BEDTIME clonidine HCl 0.1 mg PO BID cyclobenzaprine 10 mg PO BEDTIME fluoxetine 60 mg PO QAM lorazepam 0.5 mg PO TID PRN methylcellulose (laxative) (Citrucel) 500 mg PO DAILY mirtazapine 30 mg PO BEDTIME pantoprazole 40 mg PO DAILY Tobacco use date assessed: 01/05/24 Dental Screening Dental Screen Date: 12/22/23 HPI LUNG PAIN/BACK HPI Details 28-year-old female presents to the [facility] for a sick visit. Patient is reporting pain in her upper back and neck area for the past week. Along with running nose, sinus congestion and postnasal drip. She is bringing up yellow sputum. [facility] Medical History Anxiety Depression IBS (irritable bowel syndrome) Pleurisy Asthma Myalgia Surgical History Hx of removal of ovary Hx of ovarian cyst Family History Mother Cervical cancer Diabetes Father HTN (hypertension) Heart disease Stroke Social History Household Members: Other Housing: Apartment Alcohol intake: never Patient Tobacco Use Status: Never used Tobacco e-Cigarette/Vaping Use: Never Used Second Hand Smoke Exposure: No service: No Current occupational status: disabled Cognitive needs: No Hearing needs: No Vision needs: No Questionnaire Thrive Questionnaire Date Thrive assessed: 12/22/23 RACH-7 AMB Questionnaire RACH-7 Date RACH - 7 assessed: 12/22/23 Source: Developed by Drs. Edgard Cote, Jacklyn Garay, Chin Sims and colleagues, with an educational josh from [employer]. Physical exam (Primary Care) Vital Signs: Last Vital Signs Pulse 75 01/05/24 10:47 BP 110/70 01/05/24 10:47 Pulse Ox 99 01/05/24 10:47 Oxygen Delivery Method Room Air 01/05/24 10:47 BMI result Body Mass Index 31.6 Tobacco/Smoking Status: Tobacco use Status Tobacco use date assessed 01/05/24 01/05/24 10:48 Patient Tobacco Use Status Never used Tobacco 01/05/24 10:48 e-Cigarette/Vaping Use Never Used 01/05/24 10:48 Thrive Assessment: Date of Thrive Assessment Date Thrive assessed 12/22/23 01/05/24 10:48 Const General: cooperative and healthy appearing Nutritional Appearance: well nourished Orientation/consciousness: patient oriented x3 Limitations: no limitations HENMT Head: Yes normal to inspection Eyes General: appearance normal, both eyes and all related structures Neck Neck: Yes normal visual inspection Chest Chest palpation & inspection: normal palpation of entire chest wall Resp Effort & Inspection: normal respiratory effort Neuro General: patient oriented x3 Assessment and Plan Assessment & Plan (1) Upper respiratory tract infection: Code(s): J06.9 - Acute upper respiratory infection, unspecified Plan: Antibiotics and cyclobenzaprine called in. Inhalers added to the regimen. If symptoms do not improve to follow-up here. Medications: New azithromycin (Zithromax) take 500 mg today (day 1), then 250 mg for 4 days (days 2-5) PO 6 tabs 0RF cyclobenzaprine 10 mg PO BEDTIME 14 tabs 0RF Refilled albuterol sulfate 90 mcg/actuation (Ventolin HFA) 2 puffs inhalation Q4-6H 6.7 grams 0RF J45.909 - Unspecified asthma, uncomplicated Coding Level of Care Code Est Pt Level 3 (59162) Complex EM visit Add On G2211 Diagnoses Upper respiratory tract infection J06.9
[2024-01-05 10:47] VITALS: BP 110/70; PULSE 75; O2SAT 99; BMI 31.6
== END 2024-01-05 11:34 | disposition home or self-care (01) ==
PROVIDERS: PCP Internal Medicine; Visit Provider Internal Medicine
DX: J06.9 Acute upper respiratory infection, unspecified (principal)
CPT/HCPCS: 99213; G2211

== ENCOUNTER 2024-03-23 12:50 | Outpatient (AMB) | payer OTHER, SELFPAY ==
--- NOTE | 2024-03-23 12:51 | A.OFFPC_ITS ---
Vital Signs 03/23/24 12:52 Height 5 ft 1 in Weight 170 lb 4 oz BMI 32.2 BP 110/68 Blood Pressure Location Lt brachial Position Sitting Pulse 80 Pulse Source Pulse Oximeter Pulse Oximetry (%) 98 Oxygen Delivery Method Room Air Intake Visit Reasons: 3mth f/u Intake Note: Patient is here to follow up on Asthma, IBS, GERD. Security And Privacy Consultant Required: No Senior Computer Specialist: Not Required per policy Accompanied by: Self / Same As Patient Allergies No Known Allergies Allergy (Verified 03/23/24 13:18) Medication List - Last Reconciled 03/23/24 by Ventura Zuleta MD albuterol sulfate 90 mcg/actuation (Ventolin HFA) 2 puffs inhalation Q4-6H bisacodyl (Dulcolax (bisacodyl)) 10 mg (2 x 5 mg) PO BEDTIME clonidine HCl 0.1 mg PO BID cyclobenzaprine 10 mg PO BEDTIME fluoxetine 60 mg PO QAM lorazepam 0.5 mg PO TID PRN methylcellulose (laxative) (Citrucel) 500 mg PO DAILY mirtazapine 30 mg PO BEDTIME pantoprazole 40 mg PO DAILY Tobacco use date assessed: 03/23/24 Dental Screening Dental Screen Date: 12/22/23 HPI 3mth f/u HPI Details 28-year-old female presents to the [facility] to discuss her chronic medical conditions. Patient is disabled due to mental health illness. Patient reports discomfort in the stomach, exacerbated after eating. She reports symptoms of belching and burping. Not taking the PPI as directed. Also complaining of constipation. [facility] Medical History Anxiety Depression IBS (irritable bowel syndrome) Pleurisy Asthma Myalgia Surgical History Hx of removal of ovary Hx of ovarian cyst Family History Mother Cervical cancer Diabetes Father HTN (hypertension) Heart disease Stroke Social History Household Members: Other Housing: Apartment Alcohol intake: never Patient Tobacco Use Status: Never used Tobacco e-Cigarette/Vaping Use: Never Used Second Hand Smoke Exposure: No service: No Current occupational status: disabled Cognitive needs: No Hearing needs: No Vision needs: No Questionnaire Thrive Questionnaire Date Thrive assessed: 12/22/23 Are you currently unemployed and looking for a job?: No RACH-7 AMB Questionnaire RACH-7 Date RACH - 7 assessed: 12/22/23 Source: Developed by Drs. Edgard Cote, Jacklyn Garay, Chin Sims and colleagues, with an educational josh from [employer]. Physical exam (Primary Care) Vital Signs: Last Vital Signs Pulse 80 03/23/24 12:52 BP 110/68 03/23/24 12:52 Pulse Ox 98 03/23/24 12:52 Oxygen Delivery Method Room Air 03/23/24 12:52 BMI result Body Mass Index 32.2 Tobacco/Smoking Status: Tobacco use Status Tobacco use date assessed 03/23/24 03/23/24 12:57 Patient Tobacco Use Status Never used Tobacco 03/23/24 12:57 e-Cigarette/Vaping Use Never Used 03/23/24 12:57 Thrive Assessment: Date of Thrive Assessment Date Thrive assessed 12/22/23 03/23/24 12:57 Const General: cooperative and healthy appearing Nutritional Appearance: well nourished Orientation/consciousness: patient oriented x3 Limitations: no limitations HENMT Head: Yes normal to inspection Eyes General: appearance normal, both eyes and all related structures Neck Neck: Yes normal visual inspection Chest Chest palpation & inspection: normal palpation of entire chest wall Resp Effort & Inspection: normal respiratory effort Neuro General: patient oriented x3 Coding Level of Care Code Est Pt Level 3 (18217) Complex EM visit Add On G2211 Diagnoses Gastroesophageal reflux disease K21.9 Assessment & Plan Assessment & Plan (1) Gastroesophageal reflux disease: Code(s): K21.9 - Gastro-esophageal reflux disease without esophagitis Category: Medical Plan: Patient was advised to take the PPI regularly for 1 month. Previous blood work reviewed. Follow-up appointment in 1 month given. Medications: Refilled pantoprazole take one tablet half an hour before breakfast 40 mg PO DAILY 30 tabs 2RF K21.9 - Gastro-esophageal reflux disease without esophagitis
[2024-03-23 12:52] VITALS: BP 110/68; PULSE 80; O2SAT 98; BMI 32.2
== END 2024-03-23 13:17 | disposition home or self-care (01) ==
PROVIDERS: PCP Internal Medicine; Visit Provider Internal Medicine
DX: K21.9 Gastro-esophageal reflux disease without esophagitis (principal)

== ENCOUNTER → 2024-03-23 12:50 | Outpatient (BNVA) | payer OTHER, SELFPAY | PROVIDERS: PCP Internal Medicine; Visit Provider Internal Medicine | DX: K21.9 Gastro-esophageal reflux disease without esophagitis (principal) | CPT/HCPCS: 99212 ==

== ENCOUNTER → 2024-05-03 15:41 | Outpatient (AMB) | payer OTHER, SELFPAY ==
--- NOTE | 2024-05-03 15:41 | A.OFFPC_ITS ---
Intake Visit Reasons: GI issues Intake Note: Patient is here to follow up on GI isssues. Customer Resolution Specialist Required: Yes Customer Resolution Specialist Language: Serbian Information Interpreted: non-clinical & clinical Cement Finishing Supervisor: Not Required per policy Accompanied by: Self / Same As Patient Allergies No Known Allergies Allergy (Verified 05/03/24 15:42) Medication List - Last Reconciled 05/03/24 by Ventura Zuleta MD albuterol sulfate 90 mcg/actuation (Ventolin HFA) 2 puffs inhalation Q4-6H clonidine HCl 0.1 mg PO BID cyclobenzaprine 10 mg PO BEDTIME fluoxetine 60 mg PO QAM lorazepam 0.5 mg PO TID PRN mirtazapine 30 mg PO BEDTIME pantoprazole 40 mg PO DAILY Tobacco use date assessed: 03/23/24 Dental Screening Dental Screen Date: 12/22/23 HPI GI issues HPI Details 28-year-old female wishes to discuss her medical health via tele health. Patient reports she has had no improvement with the PPI. She continues to feel rumbling sensations in her stomach and has low sugars. Patient states she checks her blood sugar using her brother's glucometer. Was sugars average around 70-80. Occasional nausea. [facility] Medical History Anxiety Depression IBS (irritable bowel syndrome) Pleurisy Asthma Myalgia Surgical History Hx of removal of ovary Hx of ovarian cyst Family History Mother Cervical cancer Diabetes Father HTN (hypertension) Heart disease Stroke Social History Household Members: Other Housing: Apartment Alcohol intake: never Patient Tobacco Use Status: Never used Tobacco e-Cigarette/Vaping Use: Never Used Second Hand Smoke Exposure: No service: No Current occupational status: disabled Cognitive needs: No Hearing needs: No Vision needs: No Questionnaire Thrive Questionnaire Date Thrive assessed: 12/22/23 RACH-7 AMB Questionnaire RACH-7 Date RACH - 7 assessed: 12/22/23 Source: Developed by Drs. Edgard Cote, Jacklyn Garay, Chin Sims and colleagues, with an educational josh from [employer]. Physical exam (Primary Care) Tobacco/Smoking Status: Tobacco use Status Tobacco use date assessed 03/23/24 05/03/24 15:43 Patient Tobacco Use Status Never used Tobacco 05/03/24 15:43 e-Cigarette/Vaping Use Never Used 05/03/24 15:43 Thrive Assessment: Date of Thrive Assessment Date Thrive assessed 12/22/23 05/03/24 15:43 Telehealth Telehealth Telehealth Platform: [employer] Location of provider rendering services: practice address Location of patient: address on file Patient Identification confirmed using: Name, : Yes Telehealth method: voice only Patient verbally consented to treatment: Yes Patient verbally consented to billing insurance company: Yes Patient informed of any privacy concerns related to visit: Yes Minutes spent on Phone/Video with Pt.: 15 Coding Level of Care Code Tele Est Pt Level 3 (43614) Complex EM visit Add On G2211 Diagnoses Irritable bowel syndrome K58.9 Assessment & Plan Assessment & Plan (1) Irritable bowel syndrome: Code(s): K58.9 - Irritable bowel syndrome, unspecified Category: Medical Plan: Unsure what her symptom etiology is. A GI consult will be requested. Patient was asked to discontinue the PPI as it does not seem to be helping her. Orders: Referrals Gastroenterology Referral K58.9 - Irritable bowel syndrome, unspecified Medications: Refilled albuterol sulfate 90 mcg/actuation (Ventolin HFA) 2 puffs inhalation Q4-6H 6.7 grams 0RF J45.909 - Unspecified asthma, uncomplicated Discontinued methylcellulose (laxative) (Citrucel) Discontinued Reason: Doctor's Order 500 mg PO DAILY 30 tabs 2RF K59.00 - Constipation, unspecified bisacodyl (Dulcolax (bisacodyl)) Discontinued Reason: Doctor's Order 10 mg (2 x 5 mg) PO BEDTIME 180 tabs 4RF
== END ==
LOC: HO.HMCH 15:41
PROVIDERS: PCP Internal Medicine; Visit Provider Internal Medicine
DX: K58.9 Irritable bowel syndrome, unspecified (principal)

== ENCOUNTER 2025-02-15 09:55 | Outpatient (AMB) | payer OTHER, SELFPAY ==
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
[2025-02-15 09:58] VITALS: BP 118/78; PULSE 79; O2SAT 97; BMI 34.7
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
--- OUTSIDE RECORDS SUMMARY | 2025-02-15 11:03 | XMS_ITS | Clinical Summary ---
Author Organization [place] [id number] [address] [facility] Building Address [address] [place] [address] Phone Care Team Providers Care Home Appliance Installer Name Role Phone Nikki Red MD Primary Care Provider [phone] Allergies Active Allergy Reactions Criticality Noted Date Comments Ibuprofen 09/08/2021 Meloxicam 09/08/2021 Medications clobetasoL (TEMOVATE) 0.05 % cream Apply topically. 1 application, Topically, 2 times a day, apply a thin film x 2 weeks and as needed Active cloNIDine (CATAPRES) 0.1 mg tablet Take 1 tablet by mouth at bedtime. Active FLUoxetine (PROzac) 20 mg capsule Take 1 Capsule by mouth as needed. Active LORAZEPAM ORAL Take by mouth as needed. Active Active Problems Problem Noted Date Diagnosed Date Shortness of breath on exertion 09/08/2021 Overview (07/13/2024): Last Assessment & Plan: Reassuring stress test, echo, and 48 monitor. No further evaluation at this time. Sinus tachycardia 09/05/2021 Prediabetes 09/05/2021 Palpitations 09/05/2021 Overview (07/13/2024): Last Assessment & Plan: Likely stress related. Recommend PCP check a TSH. Would recommend discussing antidepressant/antianxiety lytics with PCP. No further cardiac testing. Reassuring 48-hour Holter. Obesity 09/05/2021 Overview (07/13/2024): Class I/ClassII Chest wall pain 09/05/2021 Overview (07/13/2024): Last Assessment & Plan: Although she did not achieve a maximal predicted heart rate there were no ECG changes suggestive of ischemia at the heart rate achieved. Its unlikely for an otherwise healthy 26-year-old female to have coronary disease. No further cardiac testing is warranted at this time. Symptoms are atypical and suggestive of stress/anxiety. Medical History Medical History Date Comments Anxiety DX:Anxiety Depression DX:Depression Eczema DX:Eczema Obesity DX:Obesity; COMM ENT: Class I/ClassII Prediabetes DX:Prediabetes Family History Medical History Relation Name Comments Hypertension Father Stroke Father Diabetes Maternal Grandfather Other: cardiovascular disease Maternal Grandfather Diabetes Maternal Grandmother Cervical cancer Mother Depression Mother Diabetes Mother Hyperlipidemia Mother Other: Fibromyalgia Mother Relation Name Status Comments Father Maternal Grandfather Maternal Grandmother Mother Social History Tobacco Use Types Packs/Day Years Used Date Smoking Tobacco: Never Smokeless Tobacco: Never Alcohol Use Standard Drinks/Week Comments Yes 0 (1 standard drink = 0.6 oz pur e alcohol) Comments Unknown Sex and Gender Information Value Date Recorded Sex Assigned at Not on file Legal Sex Female 12:44 PM EST Gender Identity Not on file Sexual Orientation Not on file Obstetrics History Last Filed Vital Signs Vital Sign Reading Time Taken Comments Blood Pressure 136/66 12/15/2021 3:09 PM EDT Sit ting R Arm Pulse 88 12/15/2021 3:09 PM EDT Temperature - - Respiratory Rate - - Oxygen Saturation - - Inhaled Oxygen Concentration - - Weight 79.4 kg (175 lb) 12/15/2021 3:09 PM EDT Height 154.9 cm (5' 1 ) 12/15/2021 3:09 PM EDT Body Mass Index 33.07 12/15/2021 3:09 PM EDT Plan of Treatment Health Maintenance Due Date Last Done Comments DTaP,Tdap,and Td Vaccines (1 - Tdap) 2012 Hepatitis B Vaccines (1 of 3 - 19+ 3-dose series) 2012 Cervical Cancer Screening: P ap Smear 2014 Cholesterol Screening (Lipid Panel) 05/19/2022 HIV Screening 05/19/2022 Hepatitis C Screening 05/19/2022 Social Influencers of Health Screening 05/19/2022 COVID-19 Vaccine ( - 2023-2 5 season) 2024 Depression Screening 06/21/2024 Influenza Vaccine (#1) 2025 HIB Vaccines Aged Out No longer eligi ble based on patient's age to complete this topic HPV Vaccines Aged Out No longer eligi ble based on patient's age to complete this topic Hepatitis A Vaccines Aged Out No long er eligible based on patient's age to complete this topic IPV Vaccines Aged Out No longer eligi ble based on patient's age to complete this topic MMR Vaccines Aged Out No longer eligi ble based on patient's age to complete this topic Meningococcal ACWY Vaccine Aged Out N o longer eligible based on patient's age to complete this topic Meningococcal B Vaccine Aged Out No l onger eligible based on patient's age to complete this topic Pneumococcal Vaccine: Pediat rics (0 to 5 Years) and At-Risk Patients (6 to 49 Years) Aged Out No longer eligible b ased on patient's age to complete this topic RSV Immunization Patients Un maurisio 20 months Aged Out No longer eligible b ased on patient's age to complete this topic Varicella Vaccines Aged Out No longer eligible based on patient's age to complete this topic Insurance [facility] [employer] Care Teams Home Appliance Installer Relationship Specialty Start Date End Date Nikki Red MD [address] [place] [address] PCP - General Internal Medicine 01/18/25
== END 2025-02-15 10:51 | disposition home or self-care (01) ==
LOC: HO.HMCH 09:55
PROVIDERS: PCP Internal Medicine
DX: Z00.00 Encounter for general adult medical examination without abnormal findings (principal); F32.A Depression, unspecified; E66.811 Obesity, class 1; Z68.34 Body mass index [BMI] 34.0-34.9, adult; F41.9 Anxiety disorder, unspecified; K21.9 Gastro-esophageal reflux disease without esophagitis; K58.9 Irritable bowel syndrome, unspecified; J45.909 Unspecified asthma, uncomplicated; N62 Hypertrophy of breast; F43.10 Post-traumatic stress disorder, unspecified; L30.9 Dermatitis, unspecified

== ENCOUNTER → 2025-02-15 09:55 | Outpatient (BNVA) | payer OTHER, SELFPAY | PROVIDERS: PCP Internal Medicine | DX: Z00.00 Encounter for general adult medical examination without abnormal findings (principal); K21.9 Gastro-esophageal reflux disease without esophagitis; K58.9 Irritable bowel syndrome, unspecified; F32.9 Major depressive disorder, single episode, unspecified; F41.9 Anxiety disorder, unspecified; J45.909 Unspecified asthma, uncomplicated; M54.50 Low back pain, unspecified; G89.29 Other chronic pain; F32.A Depression, unspecified; N62 Hypertrophy of breast; F43.10 Post-traumatic stress disorder, unspecified; L30.9 Dermatitis, unspecified; E66.811 Obesity, class 1; Z68.34 Body mass index [BMI] 34.0-34.9, adult | CPT/HCPCS: 96127; 99395 ==